=== PATIENT | female | born 1995 | race Caucasian/White ===

== ENCOUNTER → 2022-06-23 | Emergency (ER) | payer OTHER ==
[~2022-06-23] VITALS: Ht 170.2 cm; Wt 64.4 kg
[~2022-06-23] MED LIST: DIAZEPAM 5 MG TABLET ONE; DIAZEPAM 5 MG TABLET PO ONE; LORA-259 PO
--- NOTE | 2022-06-23 20:45 | NUR ---
BIBS FROM HOME, A/O X 4, C/O ANXIETY ATTACK [id number] AGO "FELT LIKE PASSING OUT."
--- NOTE | 2022-06-23 21:46 | NUR ---
PT DISCHARGED IN STABLE CONDITION
[2022-06-23 21:47] VITALS: BP 125/90
== END | disposition home or self-care (01) ==
LOC: ER 20:33
DX: F41.9 Anxiety disorder, unspecified (principal); Z60.2 Problems related to living alone; Z79.899 Other long term (current) drug therapy